=== PATIENT | female | born 1970 | race Caucasian/White ===

== ENCOUNTER 2017-05-22 18:00 | Emergency (ER) | payer OTHER ==
[2015-11-30 18:11] VITALS: Ht 167.6 cm; Wt 72.6 kg
[~2017-05-22] VITALS: Ht 167.6 cm; Wt 72.6 kg
[~2017-05-22 18:00] MED LIST: IBUP800T37 PO; LOR5/325 PO; NAPR220C12 PO; PER PO
--- NOTE | 2017-05-22 18:02 | ER Report ---
History and Physical Time Seen By MD: 18:01 HPI/ENOC CHIEF COMPLAINT: Adverse medication reaction HISTORY OF PRESENT ILLNESS: 47-year-old female presents ambulatory complaining of palpitations, headache, anxiety, tremor, nausea. Patient's history is significant that she is a one pack-a-day smoker for many years. She attempted to quit on her own at home approximately May 02. She began taking over-the- counter herbal supplements and nicotine replacement cigarettes without improvement. She is here with 2-3 days of not sleeping. She's been anxious, having palpitations, having severe nausea. She stopped taking the herbal supplements 2 days ago and resumed smoking. She still feels quite ill. She describes a left-sided headache that she's had since a fall one year ago. This headache is become much worse. Patient denies visual changes, speech changes, any numbness, tingling or weakness in any of her extremities. Patient denies history of thyroid problems. Patient admits to taking at time of ibuprofen to alleviate her headache. Patient also notes some diarrhea. She denies travel, recent exposure to ill contacts or consumption of bad food. REVIEW OF SYSTEMS: Respiratory: No cough, no dyspnea. Cardiovascular: No chest pain, no palpitations. Gastrointestinal: No vomiting, no abdominal pain. Musculoskeletal: No back pain. Allergies: Coded Allergies: No Known Drug Allergies (Unverified , 05/22/17) Home Meds Active Scripts Lorazepam (ATIVAN) 1 Mg Tablet, 1 MG PO Q6-8H Y for anxiety, #15 Prov:YEIMY WANG DO 05/22/17 Ondansetron Hcl (ZOFRAN) 4 Mg Tablet, 4 MG PO Q6H Y for NAUSEA/VOMITING, #12 Prov:YEIMY WANG DO 05/22/17 Ibuprofen (IBUPROFEN) 800 Mg Tablet, 800 MG PO Q8H Y for PAIN, #20 TAB 0 Refills Prov:SHAMIKA PEREZ DO 12/01/15 Discontinued Scripts Oxycodone/Acetaminophen (OXYCODONE/ACETAMINOPHEN 5MG/325 MG) 5 Mg/325 Mg Tab, 1- 2 TAB PO Q4H Y for PAIN, #30 TAB 0 Refills Prov:SHAMIKA PEREZ DO 12/01/15 Reviewed Nurses Notes: Yes Old Medical Records Reviewed: Yes Hx Smoking: Yes (0.5 PPD FOR 10 YEARS) Smoking Status: Current: Every Day Smoker Exposure to Second Hand Smoke?: No Hx Substance Use Disorder: No Hx Alcohol Use: No Constitutional Vital Sign - Last 24 Hours 05/22/17 05/22/17 05/22/17 05/22/17 18:00 18:04 18:07 18:15 Temp 98.3 Pulse ??? 83 82 Resp 20 B/P (MAP) 155/93 155/93 (113) Pulse Ox 96 96 O2 Delivery Room Air 05/22/17 05/22/17 05/22/17 05/22/17 18:30 18:45 19:00 19:15 Pulse 81 79 72 75 Pulse Ox 98 96 98 98 05/22/17 05/22/17 05/22/17 05/22/17 19:20 19:34 19:35 19:50 Pulse 87 79 78 B/P (MAP) 121/72 (88) Pulse Ox 98 96 96 05/22/17 20:05 Pulse ??? Physical Exam Vital signs stable, afebrile, pulse ox normal General Appearance: The patient is alert, has no immediate need for airway protection and no current signs of toxicity. Mild anxious-appearing, skin warm , dry, pink HEENT: Pupils equal and round no injection. TMs normal, oropharynx without redness or exudate, mucous membranes are moist Respiratory: Chest is non tender, lungs are clear to auscultation. No wheezing or rails Cardiac: regular rate and rhythm Gastrointestinal: Abdomen is soft and non tender, no masses, bowel sounds normal. Musculoskeletal: Neck: Neck is supple and non tender. No lymphadenopathy, no thyromegaly Extremities have full range of motion and are non tender. No edema, no calf tenderness Skin: No rashes or lesions. DIFFERENTIAL DIAGNOSIS: After history and physical exam differential diagnosis was considered for headache including but not limited to subarachnoid hemorrhage , migraine headache, tension headache and infectious causes such as meningitis, pharyngitis and sinusitis. Additionally nicotine withdrawal, herbal supplement toxicity Medical Decision Making Data Points Result Diagram: 05/22/17182005/22/171 Laboratory Hematology Test 05/22/17 18:21 Red Blood Count 5.01 M/uL (4.17-5.56) Mean Corpuscular Volume 89.9 fL (80.0-96.0) Mean Corpuscular Hemoglobin 30.8 pg (26.0-33.0) Mean Corpuscular Hemoglobin Concent 34.3 g/dL (32.0-36.0) Red Cell Distribution Width 13.2 % (11.5-14.5) Mean Platelet Volume 8.3 fL (7.2-11.1) Neutrophils (%) (Auto) 69.5 % (39.4-72.5) Lymphocytes (%) (Auto) 24.5 % (17.6-49.6) Monocytes (%) (Auto) 5.3 % (4.1-12.4) Eosinophils (%) (Auto) 0.2 % (0.4-6.7) Basophils (%) (Auto) 0.5 % (0.3-1.4) Nucleated RBC Relative Count (auto) 0.0 /100WBC Neutrophils # (Auto) 6.2 K/uL (2.0-7.4) Lymphocytes # (Auto) 2.2 K/uL (1.3-3.6) Monocytes # (Auto) 0.5 K/uL (0.3-1.0) Eosinophils # (Auto) 0.0 K/uL (0.0-0.5) Basophils # (Auto) 0.0 K/uL (0.0-0.1) Nucleated RBC Absolute Count (auto) 0.00 K/uL Erythrocyte Sedimentation Rate 1 mm/HOUR (0-20) Sodium Level 140 mmol/L (137-145) Potassium Level 3.3 mmol/L (3.5-5.0) Chloride Level 104 mmol/L (98-107) Carbon Dioxide Level 21 mmol/L (22-31) Blood Urea Nitrogen 11 mg/dl (7-18) Creatinine 0.80 mg/dl (0.52-1.04) Glomerular Filtration Rate Calc > 60.0 Random Glucose 101 mg/dl (75-110) Calcium Level 9.3 mg/dl (8.4-10.2) Total Bilirubin 1.1 mg/dl (0.2-1.3) Aspartate Amino Transf (AST/SGOT) 26 U/L (0-35) Alanine Aminotransferase (ALT/SGPT) 40 U/L (0-56) Alkaline Phosphatase 64 U/L (0-126) Total Protein 8.3 gm/dl (6.3-8.2) Albumin 5.0 g/dl (3.5-5.0) Thyroid Stimulating Hormone (TSH) 3.55 uIU/ml (0.46-4.68) Chemistry Test 05/22/17 18:21 White Blood Count 9.0 k/uL (4.5-11.0) Red Blood Count 5.01 M/uL (4.17-5.56) Hemoglobin 15.4 g/dL (12.0-16.0) Hematocrit 45.1 % (34.0-47.0) Mean Corpuscular Volume 89.9 fL (80.0-96.0) Mean Corpuscular Hemoglobin 30.8 pg (26.0-33.0) Mean Corpuscular Hemoglobin Concent 34.3 g/dL (32.0-36.0) Red Cell Distribution Width 13.2 % (11.5-14.5) Platelet Count 266 K/uL (150-450) Mean Platelet Volume 8.3 fL (7.2-11.1) Neutrophils (%) (Auto) 69.5 % (39.4-72.5) Lymphocytes (%) (Auto) 24.5 % (17.6-49.6) Monocytes (%) (Auto) 5.3 % (4.1-12.4) Eosinophils (%) (Auto) 0.2 % (0.4-6.7) Basophils (%) (Auto) 0.5 % (0.3-1.4) Nucleated RBC Relative Count (auto) 0.0 /100WBC Neutrophils # (Auto) 6.2 K/uL (2.0-7.4) Lymphocytes # (Auto) 2.2 K/uL (1.3-3.6) Monocytes # (Auto) 0.5 K/uL (0.3-1.0) Eosinophils # (Auto) 0.0 K/uL (0.0-0.5) Basophils # (Auto) 0.0 K/uL (0.0-0.1) Nucleated RBC Absolute Count (auto) 0.00 K/uL Erythrocyte Sedimentation Rate 1 mm/HOUR (0-20) Glomerular Filtration Rate Calc > 60.0 Calcium Level 9.3 mg/dl (8.4-10.2) Total Bilirubin 1.1 mg/dl (0.2-1.3) Aspartate Amino Transf (AST/SGOT) 26 U/L (0-35) Alanine Aminotransferase (ALT/SGPT) 40 U/L (0-56) Alkaline Phosphatase 64 U/L (0-126) Total Protein 8.3 gm/dl (6.3-8.2) Albumin 5.0 g/dl (3.5-5.0) Thyroid Stimulating Hormone (TSH) 3.55 uIU/ml (0.46-4.68) EKG/Imaging Imaging Results: CT scan of the head was obtained. The results of the study are no acute findings. The study was read by the radiologist. I viewed the images myself on the PACS system. ED Course/Re-evaluation ED Course Patient was admitted to an examination room. H&P was done. The differential diagnoses was considered. Patient with a variety of symptoms likely nicotine withdrawal. Patient was also take an herbal supplement with. I suspect some stimulants and since that energy on the label. I think patient resumed smoking 2 days ago. She's complaining of a severe headache, likely from withdrawal symptoms. But she states she fell a year ago and sustained an injury to her head. His been having continuous headache since that time. She has a nonfocal neurologic examination. A CT scan of the head is performed. Basic respiratory studies are unremarkable. Thyroid is unremarkable. Decision to Disposition Date: May 22, 2017 Decision to Disposition Time: 19:23 Depart Departure Latest Vital Signs Vital Signs Date Time Temp Pulse Resp B/P (MAP) Pulse Ox O2 Delivery O2 Flow Rate FiO2 05/22/17 20:05 ??? 05/22/17 19:50 96 05/22/17 19:34 121/72 (88) 05/22/17 18:04 98.3 20 Room Air Impression: Primary Impression: Nicotine dependence with withdrawal Additional Impressions: Headache Nausea alone Palpitations Condition: Improved Disposition: HOME OR SELF-CARE Referrals: LESLEE FERNANDEZ MD, FARRUKH MD New Scripts Lorazepam (ATIVAN) 1 Mg Tablet 1 MG PO Q6-8H Y for anxiety, #15 Prov: YEIMY WANG DO 05/22/17 Ondansetron Hcl (ZOFRAN) 4 Mg Tablet 4 MG PO Q6H Y for NAUSEA/VOMITING, #12 Prov: YEIMY WANG DO 05/22/17 Patient Instructions: Adverse Drug Reaction (ED) Additional Instructions: Use medication to control your symptoms follow-up with primary care Dr Fernandez/ Magdiel as recommended within one week Problem Qualifiers Primary Impression: Nicotine dependence with withdrawal Nicotine product type: cigarettes Qualified Codes: F17.213 - Nicotine dependence, cigarettes, with withdrawal Additional Impressions: Headache Headache type: unspecified Headache chronicity pattern: acute headache Intractability: not intractable Qualified Codes: R51 - Headache YEIMY WANG DO May 22, 2017 18:02
[2017-05-22] MEDS ORDERED: ONDANSETRON 4 MG ODT TABDP SL ONE (18:15)
[2017-05-22] MEDS ORDERED: LORazepam 1 MG TAB PO ONE (18:15)
[2017-05-22 18:27] LABS: PLATELET COUNT, AUTOMATED 266 K/uL (150-450)
[2017-05-22] MEDS ORDERED: ONDA4TAB97 PO (19:26)
[2017-05-22] MEDS ORDERED: LORA-1456 PO (19:26)
[2017-05-22 19:34] VITALS: BP 121/72
--- NOTE | 2017-05-22 19:49 | RADIOLOGY IMAGING REPORT ---
FACILITY: [facility] - [place] PATIENT NAME: Desirae Rivera : 1970 MR: [id number] V: [id number] EXAM DATE: ORDERING PHYSICIAN: YEIMY WANG TECHNOLOGIST: [place] [facility] [place] Desirae [place] : 1970 Visit/Account:[id number] Date of Sevice: 05/22/2017 EXAMINATION: CT HEAD WITHOUT CONTRAST COMPARISON: None available HISTORY: Severe left-sided headache. PROCEDURE: Noncontrast CT from the vertex through the skull base. One of the following dose optimizat ion techniques was utilized in the performance of this exam: Automated exposure control; adjustment o f the mA and/or kV according to the patient's size; or use of an iterative reconstruction technique. Specific details can be referenced in the facility's radiology CT exam operational policy. FINDINGS: Brain volume: Age-appropriate. Hemorrhage/extra-axial fluid: None. Mass effect/midline shift/edema: None. Ischemia: Kim-white differentiation is preserved. Ventricles and basal cisterns: Within normal limits. Posterior fossa: Negative. Vessels: Negative. Calvarium, skull base, and scalp: Negative. Visualized sinuses and orbits: Within normal limits. IMPRESSION: Negative age-appropriate noncontrast head CT. Report Dictated By: Sidney Zelaya MD at 05/22/2017 7:39 PM Report E-Signed By: Sidney Zelaya MD at 05/22/2017 7:43 PM WSN:[id number]
== END 2017-05-22 20:13 | disposition home or self-care (01) ==
LOC: ER 18:27
DX: F17.213 Nicotine dependence, cigarettes, with withdrawal (principal); R51 Headache; R11.0 Nausea; R00.2 Palpitations
CPT/HCPCS: 70450; 84443; 85025; 85651; 99283; S0119; 82040; 82247; 82310; 82374; 82435; 82565; 82947; 84075; 84132; 84155; 84295; 84450; 84460; 84520

== ENCOUNTER → 2018-11-06 | Outpatient (CLI) | payer OTHER ==
[2015-11-30 18:11] VITALS: BMI 24.5
[~2018-11-06] MED LIST changes: +LORA-1456 PO; +ONDA4TAB97 PO
--- NOTE | 2018-11-07 12:06 | RADIOLOGY IMAGING REPORT ---
FACILITY: [facility] - [place] PATIENT NAME: KEN LIZAMA : [id number] MR: [id number] V: [id number] EXAM DATE: [id number] ORDERING PHYSICIAN: BOB CUNNINGHAM TECHNOLOGIST: Naomy Boyd PROCEDURE: BILATERAL DIGITAL SCREENING MAMMOGRAM WITH CAD ASSISTED INTERPRETATION & 3D TOMOSYNTHESIS. REASON FOR STUDY: Screening. FAMILY HISTORY OF BREAST CANCER: None. BREAST PROCEDURES/TREATMENTS: None. COMPARISON: 06/12/12. VIEWS OBTAINED: Bilateral 2D & 3D full field CC & MLO projections. BREAST DENSITY: The breasts are heterogeneously dense which can obscure small masses. MAMMOGRAM FINDINGS: The parenchymal pattern has remained stable allowing for difference in mammographic technique & patient positioning. IMPRESSION: BIRADS 1: Negative. DIAGNOSTIC CATEGORY 1--NEGATIVE. RECOMMENDATIONS: ROUTINE MAMMOGRAM AND CLINICAL EVALUATION. Dictated by: Ingrid Pollock M.D. on 11/06/2018 at 17:01 Transcribed by: DIANNE on 11/07/2018 at 10:13 Approved by: Ingrid Pollock M.D. on 11/07/2018 at 12:01 [facility]
== END ==
LOC: MAMO 00:53
PROVIDERS: ATTEND Family Medicine
DX: Z12.31 Encounter for screening mammogram for malignant neoplasm of breast (principal)
CPT/HCPCS: 77063; 77067